=== PATIENT | female | born 1990 | race Caucasian/White ===

== ENCOUNTER 2019-05-22 10:13 | Emergency (ER) | payer OTHER ==
[~2019-05-22] VITALS: Ht 160 cm; Wt 72.6 kg
[~2019-05-22 10:13] MED LIST: Bactroban22 GM TOP; Benadryl 50 mg50 MG PO
[2019-05-22] MEDS ORDERED: NICO21TP TOP (10:22)
[2019-05-22] MEDS ORDERED: NAPR550 PO (11:25)
== END 2019-05-22 11:39 | disposition home or self-care (01) ==
LOC: ER 10:13
DX: M25.531 Pain in right wrist (principal); Z87.891 Personal history of nicotine dependence
CPT/HCPCS: 29125; 76882; 99283-25